=== PATIENT | male | born 1970 | race Caucasian/White ===

== ENCOUNTER 2017-09-03 10:26 | Emergency (ER) | payer MEDICAID ==
[2017-09-03] MEDS: predniSONE 20 MG TAB PO (13:13)
[2017-09-03] MEDS: IPRATROPIUM (NEB) 0.5 MG/2.5 ML AMP NEB (13:35)
[2017-09-03] MEDS: ALBUTEROL 0.083% (NEB) 2.5 MG/3 ML AMP NEB (13:35)
== END 2017-09-03 14:10 | disposition home or self-care (01) ==
LOC: E/R 10:26 → FTE 14:10
DX: M94.0 Chondrocostal junction syndrome [Tietze] (principal); J20.9 Acute bronchitis, unspecified; I10 Essential (primary) hypertension; J45.909 Unspecified asthma, uncomplicated
CPT/HCPCS: 93005; 94664; 99284-25

== ENCOUNTER 2018-12-07 14:10 | Inpatient (IN) | payer MEDICAID ==
[2018-12-07 14:38] LABS: ADD MAN DIFF? NO
[2018-12-07 14:42] LABS: BASOPHIL # 0.1 10^3/ul (0.0-0.1); BASOPHILS % 0.5 % (0.0-2.0); EOSINOPHILS % 0.2 % (0.0-7.0); HEMATOCRIT 45.8 % (42.0-52.0); HEMOGLOBIN 15.4 g/dl (14.0-18.0); LYMPHOCYTES # 0.8 10^3/ul (0.8-2.9); LYMPHOCYTES % 4.1 % (15.0-51.0); MEAN CORPUSCULAR HEMOGLOBIN 26.8 pg (29.0-33.0); MEAN CORPUSCULAR HGB CONC 33.6 g/dl (32.0-37.0); MEAN CORPUSCULAR VOLUME 79.7 fl (82.0-101.0); MEAN PLATELET VOLUME 10.1 fl (7.4-10.4); MONOCYTE # 1.1 10^3/ul (0.3-0.9); MONOCYTES % 5.4 % (0.0-11.0); NEUTROPHIL # 17.2 10^3/ul (1.6-7.5); NEUTROPHILS % 89.2 % (39.0-77.0); PLATELET COUNT 318 10^3/UL (140-415); RED BLOOD COUNT 5.75 10^6/ul (4.70-6.10); RED CELL DISTRIBUTION WIDTH 13.3 % (11.5-14.5)
[2018-12-07 14:42] LABS: WHITE BLOOD COUNT 19.3 10^3/ul (4.8-10.8)
[2018-12-07 15:02] LABS: ALANINE AMINOTRANSFERASE 24 IU/L (13-69); ALBUMIN 4.2 g/dl (3.3-4.9); ALKALINE PHOSPHATASE 112 IU/L (42-121); ANION GAP 11 (5-13); ASPARTATE AMINO TRANSFERASE 22 IU/L (15-46); BILIRUBIN,INDIRECT 0.6 mg/dl (0-1.1); BILIRUBIN,TOTAL 0.6 mg/dl (0.2-1.3); BLOOD UREA NITROGEN 10 mg/dl (7-20); CARBON DIOXIDE 23 mmol/L (21-31); CHLORIDE 101 mmol/L (97-110); CREATINE KINASE 98 IU/L (23-200); CREATININE 0.56 mg/dl (0.61-1.24); Estimated GFR > 60 mL/min (>60); GLUCOSE 137 mg/dl (70-220); PARTIAL THROMBOPLASTIN TIME 28.9 Sec (23.0-35.0); POTASSIUM 3.6 mmol/L (3.5-5.1); PROTIME 12.3 Sec (11.9-14.9); SODIUM 135 mmol/L (135-144); TOTAL PROTEIN 7.7 g/dl (6.1-8.1)
[2018-12-07 15:10] LABS: ETHANOL < 10.0 mg/dl (0-0)
[2018-12-07 15:13] LABS: TROPONIN-I < 0.012 ng/ml (0.000-0.120)
[2018-12-07 15:35] LABS: ADD UMIC YES; UR ASCORBIC ACID NEGATIVE (NEGATIVE); UR BILIRUBIN (Dip) NEGATIVE (NEGATIVE); UR BLOOD (Dip) 1+ mg/dL (NEGATIVE); UR CLARITY CLEAR (CLEAR); UR COLOR YELLOW (YELLOW); UR GLUCOSE (Dip) NEGATIVE (NEGATIVE); UR KETONES (Dip) NEGATIVE (NEGATIVE); UR LEUKOCYTE ESTERASE (Dip) TRACE Leu/ul (NEGATIVE); UR NITRITE (Dip) NEGATIVE (NEGATIVE); UR RBC 1 /HPF (0-5); UR SPECIFIC GRAVITY (Dip) 1.016 (1.003-1.030); UR TOTAL PROTEIN (Dip) 2+ mg/dl (NEGATIVE); UR UROBILINOGEN (Dip) NEGATIVE (NEGATIVE); UR WBC 4 /HPF (0-5)
[2018-12-07 15:37] LABS: URINE BLOOD (Dip) POC Trace-lysed (NEGATIVE); URINE GLUCOSE (Dip) POC Negative (NEGATIVE); URINE KETONES (Dip) POC Negative (NEGATIVE); URINE LEUKOCYTE EST (Dip) POC Trace (NEGATIVE); URINE NITRITE (Dip) POC Negative (NEGATIVE); URINE TOTAL PROTEIN POC 3+ (NEGATIVE)
[2018-12-07 15:38] LABS: LIPASE 125 U/L (23-300)
[2018-12-07] MEDS: KETOROLAC 30 MG INJ IV (15:39)
[2018-12-07 16:12] LABS: AMPHETAMINE/METHAMPHETAMINE Negative (NEGATIVE); BARBITURATES Negative (NEGATIVE); BENZODIAZEPINES Negative (NEGATIVE); CANNABINOIDS Positive (NEGATIVE); COCAINE Negative (NEGATIVE); OPIATES Negative (NEGATIVE)
[2018-12-07] MEDS ORDERED: ONDANSETRON 4 MG INJ IV (16:30)
[2018-12-07] MEDS ORDERED: NACL 0.9% 3 ML SYG IV (16:30)
[2018-12-07] MEDS: PIPER-TAZO 3.375 GM IV (PMX) 100 ML IVPB (16:40)
[2018-12-07 17:21] LABS: AMMONIA 24 umol/l (9-30); LACTIC ACID 1.5 mmol/L (0.5-2.0)
[2018-12-07 17:23] LABS: HAAIG REFLEX REFLEX FILED
[2018-12-07 18:28] LABS: HEPATITIS B SURFACE ANTIGEN NEGATIVE (NEGATIVE)
[2018-12-07 18:46] LABS: HEPATITIS B CORE ANTIBODY NEGATIVE (NEGATIVE); HEPATITIS C VIRAL ANTIBODY NEGATIVE (NEGATIVE)
[2018-12-07] MEDS: HYDROCODONE/APAP (5/325) TAB PO (19:03)
[2018-12-07] MEDS: LEVOFLOXACIN 750MG/D5W (PMX) 150 ML IVPB (19:27)
[2018-12-07] MEDS: SOD CHLORIDE 0.9% 1,000 ML IV (19:27)
[2018-12-08] MEDS: ACETAMINOPHEN 325 MG TAB PO ×3 (00:34→23:36)
[2018-12-08] MEDS: HYDROCODONE/APAP (5/325) TAB PO ×3 (02:20→19:01)
[2018-12-08] MEDS: SOD CHLORIDE 0.9% 1,000 ML IV ×4 (03:00→23:37)
[2018-12-08 06:17] LABS: ADD MAN DIFF? NO
[2018-12-08 06:22] LABS: BASOPHIL # 0.1 10^3/ul (0.0-0.1); BASOPHILS % 0.8 % (0.0-2.0); EOSINOPHILS % 0.2 % (0.0-7.0); HEMATOCRIT 45.9 % (42.0-52.0); HEMOGLOBIN 15.4 g/dl (14.0-18.0); LYMPHOCYTES # 0.6 10^3/ul (0.8-2.9); LYMPHOCYTES % 6.9 % (15.0-51.0); MEAN CORPUSCULAR HEMOGLOBIN 26.9 pg (29.0-33.0); MEAN CORPUSCULAR HGB CONC 33.6 g/dl (32.0-37.0); MEAN CORPUSCULAR VOLUME 80.2 fl (82.0-101.0); MEAN PLATELET VOLUME 9.8 fl (7.4-10.4); MONOCYTE # 0.5 10^3/ul (0.3-0.9); MONOCYTES % 5.5 % (0.0-11.0); NEUTROPHIL # 7.7 10^3/ul (1.6-7.5); NEUTROPHILS % 85.9 % (39.0-77.0); PLATELET COUNT 280 10^3/UL (140-415); RED BLOOD COUNT 5.72 10^6/ul (4.70-6.10); RED CELL DISTRIBUTION WIDTH 13.2 % (11.5-14.5)
[2018-12-08 06:22] LABS: WHITE BLOOD COUNT 8.9 10^3/ul (4.8-10.8)
[2018-12-08 07:28] LABS: ALANINE AMINOTRANSFERASE 25 IU/L (13-69); ALBUMIN/GLOBULIN RATIO 1.14; ALKALINE PHOSPHATASE 105 IU/L (42-121); ANION GAP 9 (5-13); ASPARTATE AMINO TRANSFERASE 20 IU/L (15-46); BLOOD UREA NITROGEN 12 mg/dl (7-20); CALCIUM 8.8 mg/dl (8.4-10.2); CARBON DIOXIDE 27 mmol/L (21-31); CHLORIDE 102 mmol/L (97-110); CHOL/HDL RATIO 5.3 RATIO; CHOLESTEROL 183 mg/dl (100-200); CREATININE 0.73 mg/dl (0.61-1.24); Estimated GFR > 60 mL/min (>60); GLUCOSE 135 mg/dl (70-220); HDL CHOLESTEROL 34 mg/dl (27-67); LDL CHOLESTEROL,CALCULATED 117 mg/dl; MAGNESIUM 1.9 mg/dl (1.7-2.5); POTASSIUM 3.9 mmol/L (3.5-5.1); SODIUM 138 mmol/L (135-144); TOTAL PROTEIN 7.5 g/dl (6.1-8.1); TRIGLYCERIDES 162 mg/dl (0-149)
[2018-12-08 07:35] LABS: HEMOGLOBIN A1C 6.3 % (0-5.9)
[2018-12-08] MEDS: LABETALOL HCL 20MG INJ IV (08:00)
[2018-12-08 08:03] LABS: BILIRUBIN,INDIRECT 0.6 mg/dl (0-1.1); BILIRUBIN,TOTAL 0.6 mg/dl (0.2-1.3)
[2018-12-08] MEDS: LISINOPRIL 10 MG TAB PO (14:19)
[2018-12-08] MEDS: KETOROLAC 30 MG INJ IV (15:23)
[2018-12-08 15:33] LABS: THYROID STIMULATING HORMONE 0.593 MIU/L (0.465-4.680)
[2018-12-08] MEDS: LEVOFLOXACIN 750MG/D5W (PMX) 150 ML IVPB (17:05)
[2018-12-08] MEDS: NAPROXEN 250 MG TAB PO (21:21)
[2018-12-09] MEDS: PANTOPRAZOLE (EC) 40 MG TAB PO (05:44)
[2018-12-09 06:50] LABS: ADD MAN DIFF? NO
[2018-12-09 06:54] LABS: BASOPHIL # 0.1 10^3/ul (0.0-0.1); BASOPHILS % 1.1 % (0.0-2.0); EOSINOPHILS # 0.1 10^3/ul (0.0-0.5); EOSINOPHILS % 1.7 % (0.0-7.0); HEMATOCRIT 43.8 % (42.0-52.0); HEMOGLOBIN 14.5 g/dl (14.0-18.0); LYMPHOCYTES # 0.9 10^3/ul (0.8-2.9); LYMPHOCYTES % 16.4 % (15.0-51.0); MEAN CORPUSCULAR HEMOGLOBIN 26.3 pg (29.0-33.0); MEAN CORPUSCULAR HGB CONC 33.1 g/dl (32.0-37.0); MEAN CORPUSCULAR VOLUME 79.3 fl (82.0-101.0); MEAN PLATELET VOLUME 9.8 fl (7.4-10.4); MONOCYTE # 0.5 10^3/ul (0.3-0.9); MONOCYTES % 9.8 % (0.0-11.0); NEUTROPHIL # 3.7 10^3/ul (1.6-7.5); NEUTROPHILS % 70.6 % (39.0-77.0); PLATELET COUNT 251 10^3/UL (140-415); RED BLOOD COUNT 5.52 10^6/ul (4.70-6.10); RED CELL DISTRIBUTION WIDTH 13.3 % (11.5-14.5)
[2018-12-09 06:54] LABS: WHITE BLOOD COUNT 5.2 10^3/ul (4.8-10.8)
[2018-12-09 07:23] LABS: ANION GAP 7 (5-13); BLOOD UREA NITROGEN 11 mg/dl (7-20); CALCIUM 8.3 mg/dl (8.4-10.2); CARBON DIOXIDE 28 mmol/L (21-31); CHLORIDE 103 mmol/L (97-110); CREATININE 0.59 mg/dl (0.61-1.24); Estimated GFR > 60 mL/min (>60); GLUCOSE 135 mg/dl (70-220); MAGNESIUM 2.2 mg/dl (1.7-2.5); PHOSPHORUS 2.9 mg/dl (2.5-4.9); POTASSIUM 3.7 mmol/L (3.5-5.1); SODIUM 138 mmol/L (135-144)
[2018-12-09] MEDS: LISINOPRIL 10 MG TAB PO (08:43)
[2018-12-09] MEDS: NAPROXEN 250 MG TAB PO ×2 (08:43→21:26)
[2018-12-09] MEDS: ACETAMINOPHEN 325 MG TAB PO (08:43)
[2018-12-09] MEDS: SOD CHLORIDE 0.9% 1,000 ML IV ×2 (08:55→14:20)
[2018-12-09] MEDS: HYDROCODONE/APAP (5/325) TAB PO ×3 (11:11→23:56)
[2018-12-09] MEDS: LEVOFLOXACIN 750 MG TABLET PO (17:50)
[2018-12-10] MEDS: PANTOPRAZOLE (EC) 40 MG TAB PO (06:07)
[2018-12-10] MEDS: HYDROCODONE/APAP (5/325) TAB PO (08:24)
[2018-12-10] MEDS: NAPROXEN 250 MG TAB PO (08:25)
[2018-12-10] MEDS: LEVOFLOXACIN 750 MG TABLET PO (08:25)
[2018-12-10] MEDS: LISINOPRIL 10 MG TAB PO (08:26)
[2018-12-10 10:22] LABS: ADD MAN DIFF? NO
[2018-12-10 10:23] LABS: BASOPHIL # 0.1 10^3/ul (0.0-0.1); BASOPHILS % 1.8 % (0.0-2.0); EOSINOPHILS # 0.4 10^3/ul (0.0-0.5); EOSINOPHILS % 9.3 % (0.0-7.0); HEMATOCRIT 43.6 % (42.0-52.0); HEMOGLOBIN 14.5 g/dl (14.0-18.0); LYMPHOCYTES # 1.2 10^3/ul (0.8-2.9); LYMPHOCYTES % 26.2 % (15.0-51.0); MEAN CORPUSCULAR HEMOGLOBIN 26.8 pg (29.0-33.0); MEAN CORPUSCULAR HGB CONC 33.3 g/dl (32.0-37.0); MEAN CORPUSCULAR VOLUME 80.4 fl (82.0-101.0); MEAN PLATELET VOLUME 9.8 fl (7.4-10.4); MONOCYTE # 0.6 10^3/ul (0.3-0.9); MONOCYTES % 12.9 % (0.0-11.0); NEUTROPHIL # 2.2 10^3/ul (1.6-7.5); NEUTROPHILS % 49.6 % (39.0-77.0); PLATELET COUNT 293 10^3/UL (140-415); RED BLOOD COUNT 5.42 10^6/ul (4.70-6.10); RED CELL DISTRIBUTION WIDTH 13.4 % (11.5-14.5)
[2018-12-10 10:23] LABS: WHITE BLOOD COUNT 4.5 10^3/ul (4.8-10.8)
[2018-12-10 10:47] LABS: ANION GAP 6 (5-13); BLOOD UREA NITROGEN 13 mg/dl (7-20); CALCIUM 9.2 mg/dl (8.4-10.2); CARBON DIOXIDE 31 mmol/L (21-31); CHLORIDE 104 mmol/L (97-110); Estimated GFR > 60 mL/min (>60); GLUCOSE 186 mg/dl (70-220); MAGNESIUM 2.1 mg/dl (1.7-2.5); PHOSPHORUS 3.1 mg/dl (2.5-4.9); POTASSIUM 4.5 mmol/L (3.5-5.1); SODIUM 141 mmol/L (135-144)
== END 2018-12-10 13:50 | disposition home or self-care (01) | DRG 871 ==
LOC: TEL 18:47 → E/R 14:10 → TEL 16:26
PROVIDERS: Internal Medicine
DX: A41.9 Sepsis, unspecified organism (principal); G93.41 Metabolic encephalopathy; N39.0 Urinary tract infection, site not specified; G93.40 Encephalopathy, unspecified; N12 Tubulo-interstitial nephritis, not specified as acute or chronic; E11.42 Type 2 diabetes mellitus with diabetic polyneuropathy; R33.9 Retention of urine, unspecified; E78.00 Pure hypercholesterolemia, unspecified; E78.5 Hyperlipidemia, unspecified; I10 Essential (primary) hypertension; Z79.82 Long term (current) use of aspirin; R51 Headache
CPT/HCPCS: 36415; 70450; 70551; 71045; 74176; 76775; 80048; 80053; 80061; 80307; 81001; 81003; 82140; 82550; 82962; 83036; 83605; 83690; 83735; 84100; 84443; 84484; 85025; 85610; 85730; 86704; 86709; 86803; 87040-91; 87086; 87340; 93005; 96374; 99285-25